=== PATIENT | female | born 1965 | race Caucasian/White ===

== ENCOUNTER 2021-03-02 09:12 | Emergency (ER) | payer OTHER ==
[~2021-03-02] VITALS: Ht 165.1 cm; Wt 74.8 kg
[2021-03-02 10:25] LABS: BASO % 0.3 % (0.0-1.0); EOS % 0.3 % (1.0-4.0); HEMATOCRIT 48.7 % (37.0-47.0); LYMPH # 3.8 10*3/uL (1.3-4.4); LYMPH % 24.6 % (27.0-41.0); MEAN CELL VOLUME 89.7 fl (81.0-99.0); MEAN CORPUSCULAR HGB 30.2 pg (27.0-31.0); MEAN CORPUSCULAR HGB CONC 33.7 g/dl (33.0-37.0); MEAN PLATELET VOLUME 9.1 fl (9.6-12.3); MONO % 6.7 % (3.0-9.0); NEUT # 10.2 10*3/uL (2.3-7.9); NEUT % 66.7 % (47.0-73.0); PLATELET COUNT AUTOMATED 349 10*3/uL (130-400); RED BLOOD COUNT 5.43 10*6/uL (4.10-5.10); RED CELL DISTRI WIDTH 13.6 % (0-14.5); WHITE BLOOD COUNT 15.3 10*3/uL (4.8-10.8)
[2021-03-02 10:34] LABS: ACT PARTIAL THROMBO TIME 25.6 SECONDS (20.0-32.1); INTERNATIONAL NORM RATIO 0.9 (2.0-3.5)
[2021-03-02 10:46] LABS: ALBUMIN 3.4 gm/dl (3.1-4.5); BUN 20 mg/dl (7-24); CHLORIDE 106 mmol/L (98-107); CREATININE 0.82 mg/dL (0.55-1.02); LIPASE 73 U/L (73-393); POTASSIUM 3.7 mmol/L (3.5-5.1); SGOT/AST 7 IU/L (3-35); SGPT/ALT 17 U/L (12-78); SODIUM 139 mmol/L (136-145); TOTAL PROTEIN 7.1 gm/dL (6.4-8.2)
[2021-03-02 10:47] LABS: ALKALINE PHOSPHATASE 76 U/L (45-117); TROPONIN I < 0.015 ng/ml (<0.045)
[2021-03-02 11:58] LABS: BILIRUBIN Negative (Negative); BLOOD Negative (Negative); CLARITY Clear (Clear); COLOR Yellow (Yellow); GLUCOSE Negative (Negative); KETONE Negative (Negative); LEUKO ESTERASE Negative (Negative); NITRITE Negative (Negative); PH 7.5 (4.5-8.0); UROBILINOGEN 0.2 E.U./dl (0.0-1.0)
[2021-03-02 12:13] LABS: EPITHELIAL CELLS 0-2; WBC 0-2 wbc/hpf (0-5)
[2021-03-02] MEDS ORDERED: PEPCID20 MG PO (13:24)
[2021-03-02] MEDS ORDERED: ZOFRAN4 MG PO (13:24)
== END 2021-03-02 13:30 | disposition home or self-care (01) ==
LOC: ED 09:12
PROVIDERS: Emergency Medicine
DX: K52.9 Noninfective gastroenteritis and colitis, unspecified (principal); K29.70 Gastritis, unspecified, without bleeding

== ENCOUNTER 2021-07-21 15:18 | Emergency (ER) | payer OTHER ==
[~2021-07-21 15:18] MED LIST: PEPCID20 MG PO; ZOFRAN4 MG PO
== END 2021-07-21 16:04 | disposition left against medical advice (07) ==
LOC: ED 15:18
DX: N76.0 Acute vaginitis (principal); Z53.21 Procedure and treatment not carried out due to patient leaving prior to being seen by health care provider

== ENCOUNTER 2022-04-17 22:40 | Emergency (ER) | payer OTHER ==
[~2022-04-17] VITALS: Ht 165.1 cm; Wt 74.4 kg
[2022-04-17] MEDS ORDERED: OMEPRAZOLE40 MG PO (22:56)
[2022-04-18 00:57] LABS: BASO # 0.1 10*3/uL (0.0-0.1); BASO % 0.4 % (0.0-1.0); EOS # 0.2 10*3/uL (0.0-0.4); EOS % 2.1 % (1.0-4.0); HEMATOCRIT 45.8 % (37.0-47.0); LYMPH # 3.7 10*3/uL (1.3-4.4); MEAN CELL VOLUME 91.2 fl (81.0-99.0); MEAN CORPUSCULAR HGB 30.9 pg (27.0-31.0); MEAN CORPUSCULAR HGB CONC 33.8 g/dl (33.0-37.0); MEAN PLATELET VOLUME 9.2 fl (9.6-12.3); MONO # 0.9 10*3/uL (0.1-1.0); MONO % 7.6 % (3.0-9.0); NEUT # 6.4 10*3/uL (2.3-7.9); NEUT % 56.5 % (47.0-73.0); PLATELET COUNT AUTOMATED 251 10*3/uL (130-400); RED BLOOD COUNT 5.02 10*6/uL (4.10-5.10); RED CELL DISTRI WIDTH 13.1 % (0-14.5); WHITE BLOOD COUNT 11.3 10*3/uL (4.8-10.8)
[2022-04-18 01:12] LABS: ALKALINE PHOSPHATASE 56 U/L (45-117); BUN 13 mg/dl (7-24); CHLORIDE 111 mmol/L (98-107); CREATININE 0.69 mg/dL (0.55-1.02); POTASSIUM 3.4 mmol/L (3.5-5.1); SGOT/AST 11 IU/L (3-35); SGPT/ALT 15 U/L (12-78); SODIUM 144 mmol/L (136-145); TOTAL PROTEIN 5.1 gm/dL (6.4-8.2)
== END 2022-04-18 03:15 | disposition home or self-care (01) ==
LOC: ED 22:40
PROVIDERS: Emergency Medicine
DX: M54.50 Low back pain, unspecified (principal); Z79.899 Other long term (current) drug therapy; F17.200 Nicotine dependence, unspecified, uncomplicated

== ENCOUNTER 2022-07-29 10:09 | Emergency (ER) | payer OTHER ==
[~2022-07-29] VITALS: Wt 74.8 kg
[~2022-07-29 10:09] MED LIST changes: +OMEPRAZOLE40 MG PO
[2022-07-29 11:44] LABS: BASO % 0.3 % (0.0-1.0); EOS # 0.1 10*3/uL (0.0-0.4); EOS % 0.5 % (1.0-4.0); HEMATOCRIT 40.7 % (37.0-47.0); LYMPH # 2.2 10*3/uL (1.3-4.4); LYMPH % 22.5 % (27.0-41.0); MEAN CELL VOLUME 92.7 fl (81.0-99.0); MEAN CORPUSCULAR HGB 30.8 pg (27.0-31.0); MEAN CORPUSCULAR HGB CONC 33.2 g/dl (33.0-37.0); MEAN PLATELET VOLUME 8.7 fl (9.6-12.3); MONO # 0.9 10*3/uL (0.1-1.0); MONO % 9.3 % (3.0-9.0); NEUT # 6.5 10*3/uL (2.3-7.9); NEUT % 66.6 % (47.0-73.0); PLATELET COUNT AUTOMATED 324 10*3/uL (130-400); RED BLOOD COUNT 4.39 10*6/uL (4.10-5.10); RED CELL DISTRI WIDTH 13.5 % (0-14.5); WHITE BLOOD COUNT 9.8 10*3/uL (4.8-10.8)
[2022-07-29 11:51] LABS: BILIRUBIN Negative (Negative); BLOOD Negative (Negative); CLARITY Clear (Clear); COLOR Yellow (Yellow); GLUCOSE Negative (Negative); KETONE Negative (Negative); LEUKO ESTERASE Negative (Negative); NITRITE Negative (Negative); PH 5.5 (4.5-8.0); UROBILINOGEN 0.2 E.U./dl (0.0-1.0)
[2022-07-29 11:56] LABS: BACTERIA 1+
[2022-07-29 11:58] LABS: ALKALINE PHOSPHATASE 138 U/L (45-117); BUN 10 mg/dl (7-24); CHLORIDE 108 mmol/L (98-107); CREATININE 0.71 mg/dL (0.55-1.02); LIPASE 110 U/L (73-393); SGOT/AST 174 IU/L (3-35); SGPT/ALT 116 U/L (12-78); SODIUM 140 mmol/L (136-145); TOTAL PROTEIN 6.1 gm/dL (6.4-8.2)
[2022-07-29] MEDS ORDERED: METRONIDAZOLE500 M1 PO (14:13)
== END 2022-07-29 14:37 | disposition home or self-care (01) ==
LOC: ED 10:09
PROVIDERS: Nurse Practitioner Family
DX: A59.9 Trichomoniasis, unspecified (principal); Z20.822 Contact with and (suspected) exposure to COVID-19; R19.7 Diarrhea, unspecified; Z79.899 Other long term (current) drug therapy

== ENCOUNTER 2022-09-17 10:42 | Emergency (ER) | payer OTHER ==
[~2022-09-17] VITALS: Ht 165.1 cm; Wt 75.7 kg
[~2022-09-17 10:42] MED LIST changes: +METRONIDAZOLE500 M1 PO
[2022-09-17] MEDS ORDERED: LOSARTAN-HCTZ1 EACH PO (10:54)
[2022-09-17] MEDS ORDERED: PREDNISONE50 MG PO (11:28)
== END 2022-09-17 11:45 | disposition home or self-care (01) ==
LOC: ED 10:42
DX: M54.31 Sciatica, right side (principal); Z79.899 Other long term (current) drug therapy; F17.200 Nicotine dependence, unspecified, uncomplicated

== ENCOUNTER 2022-11-13 04:18 | Emergency (ER) | payer OTHER ==
[~2022-11-13] VITALS: Ht 162.5 cm; Wt 68.0 kg
[~2022-11-13 04:18] MED LIST changes: +LOSARTAN-HCTZ1 EACH PO; +PREDNISONE50 MG PO
[2022-11-13] MEDS ORDERED: PREDNISONE20 M1 PO (06:22)
[2022-11-13] MEDS ORDERED: GABAPENTIN400 MG PO (06:22)
[2022-11-13] MEDS ORDERED: LIDODERM1 EACH T (06:22)
[2022-11-13] MEDS ORDERED: RELAFEN DS1000 MG PO (06:22)
[2022-11-13] MEDS ORDERED: CYCLOBENZAPRINE10 MG PO (06:22)
== END 2022-11-13 07:47 | disposition home or self-care (01) ==
LOC: ED 04:18
DX: M54.42 Lumbago with sciatica, left side (principal)